=== PATIENT | male | born 1960 | race Caucasian/White ===

== ENCOUNTER → 2017-02-21 | Outpatient (CLI) | payer MEDICARE ==
[~2017-02-21] MED LIST: ALBUTEROL0.09 MG/A2 INH; AMBIEN5 MG PO; AMOXICILLIN500 MG PO; ASPIRIN ADULT L81 M1 PO; AUGMENTIN 875 M1 TAB PO; BACLOFEN20 M1 PO; CARDIZEM30 MG PO; CIPRODEX 0.3%-7.5 ML OT; CLARITIN10 MG PO; COUMADIN6 M1 PO; COUMADIN7.5 M1 PO; Coumadin5 MG PO; FEOSOL300 MG PO; FLONASE 0.05% 121 EA NAS; LASIX20 MG PO; LIPITOR40 MG PO; LOVENOX100 MG/1 M PO; MEDROL DOSEPAK4 MG PO; METOPROLOL SR50 MG PO; MICRO-K 1010 MEQ PO; NITRO-BID2% TP; PLAVIX75 MG PO; POTASSIUM20 MEQ PO; TESSALON PERLE200 MG PO; TORADOL10 MG PO; TYLENOL325 M2 PO; VISTARIL50 MG PO; XANAX0.25 MG PO; ZITHROMAX Z PA250 MG PO; ZITHROMAX250 MG PO
[2017-02-21 11:42] LABS: HEMATOCRIT 51.4 % (42.0-52.0); HEMOGLOBIN 16.2 g/dl (14.0-18.0); MEAN CELL VOLUME 84.3 fl (80.0-94.0); MEAN CORPUSCULAR HGB 26.6 pg (27.0-31.0); MEAN CORPUSCULAR HGB CONC 31.5 g/dl (33.0-37.0); MEAN PLATELET VOLUME 12.6 fl (9.6-12.3); RED BLOOD COUNT 6.1 10*6/uL (4.50-5.90); WHITE BLOOD COUNT 8.3 10*3/uL (4.8-10.8)
[2017-02-21 11:50] LABS: ALBUMIN 3.7 gm/dl (3.1-4.5); ALKALINE PHOSPHATASE 77 U/L (45-117); BILIRUBIN, TOTAL 0.4 mg/dl (0.2-1.0); BUN 8 mg/dl (7-24); CARBON DIOXIDE 25 mmol/L (21-32); CHLORIDE 105 mmol/L (98-107); CHOLESTEROL 108 mg/dL (<200); EST GLOM FILT AFRICAN AMERICAN > 60 ml/min; GLUCOSE 102 mg/dL (65-99); HDL CHOLESTEROL 45 mg/dl (40-60); LDL CHOLESTEROL 40 mg/dL (9-159); SGOT/AST 24 IU/L (3-35); SGPT/ALT 24 U/L (12-78); SODIUM 143 mmol/L (136-145); TOTAL PROTEIN 7.4 gm/dL (6.4-8.2); TRIGLYCERIDES 116 mg/dl (<150); VLDL CHOLESTEROL 23 mg/dL (6-40)
[2017-02-22 14:04] LABS: LYME AB/TOTAL IMMUNOGLOBULINS <0.91 ISR (0.00-0.90)
== END ==
LOC: PHLEB 02:15
PROVIDERS: Internal Medicine
DX: D45 Polycythemia vera (principal); R68.89 Other general symptoms and signs

== ENCOUNTER → 2017-03-01 | Outpatient (CLI) | payer MEDICARE ==
[2017-03-01 12:15] LABS: ALBUMIN 3.6 gm/dl (3.1-4.5); BILIRUBIN, DIRECT 0.1 mg/dL (0.0-0.2); BILIRUBIN, TOTAL 0.5 mg/dl (0.2-1.0); TOTAL PROTEIN 7.4 gm/dL (6.4-8.2)
== END | disposition home or self-care (01) ==
LOC: LAB 11:21
PROVIDERS: Internal Medicine
DX: E78.5 Hyperlipidemia, unspecified (principal); E55.9 Vitamin D deficiency, unspecified

== ENCOUNTER → 2017-04-04 | Outpatient (CLI) | payer MEDICARE | END | disposition home or self-care (01) | LOC: US 14:08 | DX: D45 Polycythemia vera (principal); M79.604 Pain in right leg; M79.605 Pain in left leg; I70.0 Atherosclerosis of aorta ==

== ENCOUNTER → 2017-05-22 | Outpatient (CLI) | payer MEDICARE ==
[~2017-05-22] MED LIST changes: +NEURONTIN100 MG PO; +REPATHA SY140 MG/1 M SQ
== END | disposition home or self-care (01) ==
LOC: US 13:21
DX: I65.23 Occlusion and stenosis of bilateral carotid arteries (principal); I65.9 Occlusion and stenosis of unspecified precerebral artery; I25.10 Atherosclerotic heart disease of native coronary artery without angina pectoris

== ENCOUNTER 2017-06-10 17:05 | Inpatient (IN) | payer MEDICARE ==
[~2017-06-10] VITALS: Ht 177.8 cm; Wt 86.3 kg
[2017-06-10 17:21] VITALS: BP 156/90
[2017-06-10 17:35] LABS: BASO % 0.4 % (0.0-1.0); EOS # 0.1 10*3/uL (0.0-0.4); EOS % 1.1 % (1.0-4.0); HEMATOCRIT 49.8 % (42.0-52.0); HEMOGLOBIN 16.5 g/dl (14.0-18.0); LYMPH # 1.6 10*3/uL (1.3-4.4); LYMPH % 18.3 % (27.0-41.0); MEAN CELL VOLUME 82.5 fl (80.0-94.0); MEAN CORPUSCULAR HGB 27.3 pg (27.0-31.0); MEAN CORPUSCULAR HGB CONC 33.1 g/dl (33.0-37.0); MEAN PLATELET VOLUME 12.1 fl (9.6-12.3); MONO # 0.9 10*3/uL (0.1-1.0); MONO % 9.8 % (3.0-9.0); NEUT # 6.2 10*3/uL (2.3-7.9); NEUT % 70.1 % (47.0-73.0); PLATELET COUNT AUTOMATED 129 10*3/uL (130-400); RED BLOOD COUNT 6.04 10*6/uL (4.50-5.90); RED CELL DISTRI WIDTH 19.8 % (0-14.5); WHITE BLOOD COUNT 8.9 10*3/uL (4.8-10.8)
[2017-06-10 17:48] LABS: ACT PARTIAL THROMBO TIME 27.2 SECONDS (20.8-31.5); INTERNATIONAL NORM RATIO 1.3 (2.0-3.5)
[2017-06-10 17:52] LABS: ALBUMIN 3.6 gm/dl (3.1-4.5); ALKALINE PHOSPHATASE 75 U/L (45-117); BUN 7 mg/dl (7-24); CHLORIDE 109 mmol/L (98-107); CREATININE 0.76 mg/dL (0.70-1.30); MAGNESIUM 2.2 mg/dL (1.5-2.1); SGOT/AST 27 IU/L (3-35); SGPT/ALT 21 U/L (12-78); SODIUM 140 mmol/L (136-145); TOTAL PROTEIN 7.1 gm/dL (6.4-8.2)
[2017-06-10 17:56] LABS: TROPONIN I 0.147 ng/ml (<0.045)
[2017-06-10 18:13] VITALS: BP 149/78
[2017-06-10 19:05] VITALS: BP 159/82
--- NOTE | 2017-06-10 19:12 | NUR ---
PT LYING IN BED, NO CHEST PAIN AT PRESENT
[2017-06-10 19:33] VITALS: BP 177/100
[2017-06-10 19:37] VITALS: BP 165/96
--- NOTE | 2017-06-10 20:26 | NUR ---
4TH FLOOR CALLED, SAID BED NOT CLEAN YET FOR THIS PATIENT WILL LET US KNOW WHEN CLEAN
[2017-06-10 20:57] VITALS: BP 159/82
[2017-06-10] MEDS ORDERED: XANAX0.25 MG PO (20:57)
--- NOTE | 2017-06-10 21:00 | NUR ---
A 57, admitted to 4E, under the services of CHRISTEN Chambers DO with a diagnosis of NSTEMI. Chief complaint is CHEST PAIN. Patient arrived via ambulatory from ER. Monitor applied. Initial assessment completed. Vital signs taken and recorded. CHRISTEN CHAMBERS DO notified of admission to the unit. Orders received. See assessment for past medical history, medications and allergies. Patient and/or family oriented to unit. [facility] visitation policy reviewed. Clothing/patient valuable form completed. THIERRY CANALES
--- NOTE | 2017-06-10 22:00 | NUR ---
PATIENT DENIES ANY CHEST PAIN AT THIS TIME. PATIENT STATED HE FEELS 100% BETTER. PATIENT MADE AWARE OF NPO STATUS FOR POSSIBLE STRESS TEST TOMORROW. DR. DWYER IN TO SEE PATIENT. PATIENT LEFT WITH CALL LIGHT IN REACH.
[2017-06-11] VITALS: BP 108/49
[2017-06-11 05:58] LABS: HEMATOCRIT 50.1 % (42.0-52.0); HEMOGLOBIN 16.1 g/dl (14.0-18.0); MEAN CELL VOLUME 85.5 fl (80.0-94.0); MEAN CORPUSCULAR HGB 27.5 pg (27.0-31.0); MEAN CORPUSCULAR HGB CONC 32.1 g/dl (33.0-37.0); PLATELET COUNT AUTOMATED 101 10*3/uL (130-400); RED BLOOD COUNT 5.86 10*6/uL (4.50-5.90); RED CELL DISTRI WIDTH 19.9 % (0-14.5); WHITE BLOOD COUNT 6.8 10*3/uL (4.8-10.8)
[2017-06-11 06:22] LABS: BUN 8 mg/dl (7-24); CHLORIDE 107 mmol/L (98-107); CHOLESTEROL 86 mg/dL (<200); CREATININE 0.84 mg/dL (0.70-1.30); POTASSIUM 3.9 mmol/L (3.5-5.1); SODIUM 143 mmol/L (136-145); TRIGLYCERIDES 132 mg/dl (<150); VLDL CHOLESTEROL 26 mg/dL (6-40)
[2017-06-11 06:26] LABS: ACT PARTIAL THROMBO TIME 29.8 SECONDS (20.8-31.5); INTERNATIONAL NORM RATIO 1.3 (2.0-3.5)
[2017-06-11 06:30] LABS: BASOPHILS 1 % (0-1); PLATELET SUFFICIENCY LOW (NORMAL); TOTAL CELLS COUNTED 100 #CELLS
[2017-06-11 06:31] LABS: HDL CHOLESTEROL 30 mg/dl (40-60); LDL CHOLESTEROL 30 mg/dL (9-159)
[2017-06-11 07:25] LABS: VITAMIN D, 25-HYDROXY 24.8 ng/mL (30-100)
[2017-06-11 08:00] VITALS: BP 140/68; BP 140/92
--- NOTE | 2017-06-11 08:30 | NUR ---
Internet Marketing Specialist in to talk to patient. Patient states lives at HOME with HIS . There are 2 steps in the home. Physician: DR MARTINES Pharmacy: [facility] Home health services: NONE Patient's level of ADLs: INDEPENDENT Patient has working utilities: YES DME: NONE Follow-up physician's appointment after d/c: WILL BE MADE PRIOR TO DC Does patient want to access PORTAL?: Discharge plan HOME. SAMUEL COWAN
--- NOTE | 2017-06-11 08:39 | NUR ---
PATIENT IS SITTING UP IN BED. PATIENT DENIES ANY CHEST PAIN THIS MORNING, BUT STATES "HAVE A SMALL HEADACHE BUT DONT NEED ANYTHING FOR IT". WILL CONTINUW TO MONITOR PATIENT. SEE SHIFT ASSESSMENT.
--- NOTE | 2017-06-11 09:11 | NUR ---
PATIENT HAD INCREASING HEADACHE PAIN THAT THEY RATED 5/10 THAT IS A SHARP STABBING PAIN IN THE FRONT OF THEIR HEAD. PATIENT WAS GIVEN TYLENOL. WILL CONTINUE TO MONITOR AD REASSESS.
--- NOTE | 2017-06-11 11:42 | NUR ---
CALLED DR. SQUIRES REGARDING DIET FOR TODAY HE WILL TAKE CARE OF IT.
[2017-06-11 12:00] VITALS: BP 128/71
--- NOTE | 2017-06-11 15:51 | NUR ---
PATIENT IS LAYING IN BED. FAMILY MEMBER IS AT THE PATIENTS BEDSIDE. PATIENT HAS NO COMPLAINTS OF PAIN OR DISCOMFORT AT THIS TIME. PATIENT HAD NO FURTHER REQUESTS AT THIS TIME, SEE SHIFT ASSESSMENT.
[2017-06-11 16:00] VITALS: BP 143/78
--- NOTE | 2017-06-11 18:47 | NUR ---
PATIENT IS SITTING UP IN BED. PATIENT HAS SEVERAL FAMILY MEMBERS AT THE BEDSIDE. PATIENT HAS NO COMPLAINTS OR REQUESTS AT THIS TIME. PATIENT DENIES ANY PAIN OR DISCOMFORT. SEE SHIFT ASSESSMENT, CALL LIGHT WITHIN REACH.
[2017-06-11 20:00] VITALS: BP 133/83
--- NOTE | 2017-06-11 20:00 | NUR ---
PATIENT SITTING UP IN BED, WITH FAMILY AT BEDSIDE. PATIENT AWARE OF NPO STATUS AT 0000. AND TRANSPORT TO [facility] FOR HEART CATH. PATIENT DENIES ANY CHEST PAIN AT THIS TIME. NO HEADACHE AT THIS TIME. PATIENT LEFT WITH CALL LIGHT IN REACH.
[2017-06-12] VITALS: BP 111/74
--- NOTE | 2017-06-12 01:48 | NUR ---
Resting quietly in bed. Resp easy and regular. Denies pain at this time. Will continue to monitor.
[2017-06-12 06:00] VITALS: BP 134/68
--- NOTE | 2017-06-12 08:15 | NUR ---
Discharge instructions reviewed with patient/family. Patient receptive and verbalizes understanding. PATIENT TRANSFERRED TO [facility]IA [facility]. Written instructions given TO PATIENT AND AMBULANCE. GAGE YOUNG
== END 2017-06-12 08:15 | disposition short-term general hospital (02) | DRG 281 ==
LOC: ED 17:05 → 4E 19:48 → EDHOLD 19:48 → 4E 20:15
PROVIDERS: Emergency Medicine; Internal Medicine; ADMIT Internal Medicine
DX: I21.4 Non-ST elevation (NSTEMI) myocardial infarction (principal); D68.59 Other primary thrombophilia; D69.6 Thrombocytopenia, unspecified; E55.9 Vitamin D deficiency, unspecified; I25.118 Atherosclerotic heart disease of native coronary artery with other forms of angina pectoris; I10 Essential (primary) hypertension; F41.9 Anxiety disorder, unspecified; I73.9 Peripheral vascular disease, unspecified; J40 Bronchitis, not specified as acute or chronic; Z95.0 Presence of cardiac pacemaker; Z95.2 Presence of prosthetic heart valve; Z79.01 Long term (current) use of anticoagulants; Z83.3 Family history of diabetes mellitus; Z82.49 Family history of ischemic heart disease and other diseases of the circulatory system; Z82.5 Family history of asthma and other chronic lower respiratory diseases; I25.2 Old myocardial infarction; Z95.5 Presence of coronary angioplasty implant and graft; Z86.73 Personal history of transient ischemic attack (TIA), and cerebral infarction without residual deficits; Z87.891 Personal history of nicotine dependence; Z79.899 Other long term (current) drug therapy; Z79.82 Long term (current) use of aspirin

== ENCOUNTER 2017-08-27 07:41 | Emergency (ER) | payer MEDICARE ==
[~2017-08-27] VITALS: Ht 180.3 cm; Wt 90.7 kg
[2017-08-27] MEDS ORDERED: RANEXA500 M1 PO (07:50)
[2017-08-27] MEDS ORDERED: PLAVIX75 M1 PO (07:50)
[2017-08-27 08:10] LABS: BASO % 0.6 % (0.0-1.0); EOS # 0.1 10*3/uL (0.0-0.4); EOS % 1.4 % (1.0-4.0); HEMATOCRIT 50.9 % (42.0-52.0); LYMPH # 1.3 10*3/uL (1.3-4.4); LYMPH % 17.7 % (27.0-41.0); MEAN CELL VOLUME 88.8 fl (80.0-94.0); MEAN CORPUSCULAR HGB 29.7 pg (27.0-31.0); MEAN CORPUSCULAR HGB CONC 33.4 g/dl (33.0-37.0); MEAN PLATELET VOLUME 11.2 fl (9.6-12.3); MONO # 0.8 10*3/uL (0.1-1.0); MONO % 10.8 % (3.0-9.0); NEUT % 68.8 % (47.0-73.0); PLATELET COUNT AUTOMATED 142 10*3/uL (130-400); RED BLOOD COUNT 5.73 10*6/uL (4.50-5.90); RED CELL DISTRI WIDTH 15.5 % (0-14.5); WHITE BLOOD COUNT 7.2 10*3/uL (4.8-10.8)
[2017-08-27 08:17] LABS: INTERNATIONAL NORM RATIO 2.4 (2.0-3.5)
[2017-08-27 08:21] LABS: BUN 9 mg/dl (7-24); CHLORIDE 107 mmol/L (98-107); CREATININE 0.84 mg/dL (0.70-1.30); POTASSIUM 3.9 mmol/L (3.5-5.1); SODIUM 139 mmol/L (136-145)
[2017-08-27 13:25] VITALS: BP 144/78
== END 2017-08-27 13:26 | disposition home or self-care (01) ==
LOC: ED 07:41
PROVIDERS: Emergency Medicine
DX: R04.0 Epistaxis (principal); I10 Essential (primary) hypertension; F41.9 Anxiety disorder, unspecified; E83.41 Hypermagnesemia; Z79.899 Other long term (current) drug therapy; Z79.82 Long term (current) use of aspirin; Z86.73 Personal history of transient ischemic attack (TIA), and cerebral infarction without residual deficits; Z95.1 Presence of aortocoronary bypass graft; Z87.891 Personal history of nicotine dependence

== ENCOUNTER → 2017-09-13 | Outpatient (CLI) | payer MEDICARE ==
[~2017-09-13] MED LIST changes: +PLAVIX75 M1 PO; +RANEXA500 M1 PO
[2017-09-13 16:03] LABS: BUN 13 mg/dl (7-24); CHLORIDE 105 mmol/L (98-107); CREATININE 1.03 mg/dL (0.70-1.30); POTASSIUM 3.9 mmol/L (3.5-5.1); SODIUM 139 mmol/L (136-145)
== END | disposition home or self-care (01) ==
LOC: LAB 15:28
PROVIDERS: Surgery
DX: I65.22 Occlusion and stenosis of left carotid artery (principal)

== ENCOUNTER → 2018-01-06 | Outpatient (CLI) | payer MEDICARE | END | disposition home or self-care (01) | LOC: RAD 10:45 | DX: I48.91 Unspecified atrial fibrillation (principal); R20.0 Anesthesia of skin ==

== ENCOUNTER → 2018-02-05 | Outpatient (CLI) | payer MEDICARE | END | disposition home or self-care (01) | LOC: US 10:26 | DX: I70.8 Atherosclerosis of other arteries (principal); I73.9 Peripheral vascular disease, unspecified ==

== ENCOUNTER 2018-05-11 17:23 | Emergency (ER) | payer MEDICARE ==
[~2018-05-11] VITALS: Ht 180.3 cm; Wt 88.5 kg
[2018-05-11 18:23] LABS: BASO % 0.5 % (0.0-1.0); EOS # 0.1 10*3/uL (0.0-0.4); EOS % 2.1 % (1.0-4.0); HEMATOCRIT 49.9 % (42.0-52.0); LYMPH # 1.6 10*3/uL (1.3-4.4); LYMPH % 23.6 % (27.0-41.0); MEAN CELL VOLUME 85.3 fl (80.0-94.0); MEAN CORPUSCULAR HGB 27.4 pg (27.0-31.0); MEAN CORPUSCULAR HGB CONC 32.1 g/dl (33.0-37.0); MONO # 0.8 10*3/uL (0.1-1.0); MONO % 11.4 % (3.0-9.0); NEUT # 4.1 10*3/uL (2.3-7.9); NEUT % 61.8 % (47.0-73.0); PLATELET COUNT AUTOMATED 137 10*3/uL (130-400); RED BLOOD COUNT 5.85 10*6/uL (4.50-5.90); RED CELL DISTRI WIDTH 15.9 % (0-14.5); WHITE BLOOD COUNT 6.6 10*3/uL (4.8-10.8)
[2018-05-11 18:33] LABS: ACT PARTIAL THROMBO TIME 36.4 SECONDS (20.8-31.5); INTERNATIONAL NORM RATIO 3.6 (2.0-3.5)
[2018-05-11 18:41] LABS: BUN 11 mg/dl (7-24); CHLORIDE 109 mmol/L (98-107); CREATININE 0.86 mg/dL (0.70-1.30); POTASSIUM 3.9 mmol/L (3.5-5.1); SODIUM 141 mmol/L (136-145)
[2018-05-11 19:37] VITALS: BP 170/80
== END 2018-05-11 19:52 | disposition home or self-care (01) ==
LOC: ED 17:23
PROVIDERS: Emergency Medicine
DX: S20.212A Contusion of left front wall of thorax, initial encounter (principal); S50.312A Abrasion of left elbow, initial encounter; S80.212A Abrasion, left knee, initial encounter; S80.211A Abrasion, right knee, initial encounter; I25.10 Atherosclerotic heart disease of native coronary artery without angina pectoris; I10 Essential (primary) hypertension; Z79.899 Other long term (current) drug therapy; Z79.82 Long term (current) use of aspirin; Z86.73 Personal history of transient ischemic attack (TIA), and cerebral infarction without residual deficits; Z87.891 Personal history of nicotine dependence; Z95.1 Presence of aortocoronary bypass graft; Z95.0 Presence of cardiac pacemaker; W10.9XXA Fall (on) (from) unspecified stairs and steps, initial encounter; Y93.89 Activity, other specified; Y92.89 Other specified places as the place of occurrence of the external cause; Y99.8 Other external cause status

== ENCOUNTER → 2018-05-12 | Outpatient (CLI) | payer MEDICARE | END | disposition home or self-care (01) | LOC: RAD 14:07 | DX: S51.011A Laceration without foreign body of right elbow, initial encounter (principal); M19.021 Primary osteoarthritis, right elbow; M25.421 Effusion, right elbow; X58.XXXA Exposure to other specified factors, initial encounter; Y93.89 Activity, other specified; Y92.89 Other specified places as the place of occurrence of the external cause; Y99.8 Other external cause status ==

== ENCOUNTER → 2018-05-29 | Outpatient (CLI) | payer MEDICARE ==
[2018-05-29 11:43] LABS: ALBUMIN 3.5 gm/dl (3.1-4.5); BILIRUBIN, DIRECT 0.1 mg/dL (0.0-0.2); FREE T4 0.98 ng/dl (0.76-1.46); TOTAL PROTEIN 7.2 gm/dL (6.4-8.2)
[2018-05-29 11:49] LABS: THYROID STIM HORMONE (HS) 1.79 uIU/ml (0.358-4.75)
== END | disposition home or self-care (01) ==
LOC: LAB 10:12
PROVIDERS: Internal Medicine
DX: E78.5 Hyperlipidemia, unspecified (principal); E55.9 Vitamin D deficiency, unspecified

== ENCOUNTER → 2018-08-01 | Outpatient (CLI) | payer MEDICARE ==
[2018-08-01 09:10] VITALS: BP 131/67
[2018-08-01 09:35] VITALS: BP 96/54
[2018-08-01 09:53] VITALS: BP 116/68
== END | disposition home or self-care (01) ==
LOC: PHLEB 00:43
DX: D45 Polycythemia vera (principal)

== ENCOUNTER → 2018-09-22 | Outpatient (CLI) | payer MEDICARE | END | disposition home or self-care (01) | LOC: CT 09-16 09:00 → LAB 10:26 → CT 11:00 | PROVIDERS: Physician Assistant | DX: M51.27 Other intervertebral disc displacement, lumbosacral region (principal); G62.9 Polyneuropathy, unspecified ==

== ENCOUNTER → 2018-11-19 | Outpatient (CLI) | payer OTHER ==
[~2018-11-19] MED LIST changes: +FEOSOL325 MG PO; +LYRICA25 M1 PO; +METOPROLOL SUCC25 M2 PO
== END | disposition home or self-care (01) ==
LOC: CT 08:28
DX: I63.9 Cerebral infarction, unspecified (principal); I48.91 Unspecified atrial fibrillation

== ENCOUNTER → 2019-02-19 | Outpatient (CLI) | payer OTHER ==
[2019-02-19 11:24] LABS: THYROID STIM HORMONE (HS) 1.64 uIU/ml (0.358-4.75)
[2019-02-20 07:04] LABS: CREATINE KINASE, TOTAL, SERUM 182 U/L (24-204)
[2019-02-20 14:09] LABS: CK-BB 0 % (0); CK-MB 0 % (0-3); CK-MM 100 % (97-100); MACRO TYPE 1 0 % (Not Observed); MACRO TYPE 2 0 % (Not Observed)
[2019-02-20 16:06] LABS: ALDOLASE 002030 6.8 U/L (3.3-10.3)
== END | disposition home or self-care (01) ==
LOC: LAB 10:07
PROVIDERS: Psychiatry & Neurology Neurology
DX: Z79.899 Other long term (current) drug therapy (principal)

== ENCOUNTER → 2019-04-25 | Outpatient (CLI) | payer OTHER ==
[2019-04-25 11:13] LABS: ALBUMIN 3.7 gm/dl (3.1-4.5); BILIRUBIN, DIRECT 0.1 mg/dL (0.0-0.2); TOTAL PROTEIN 7.3 gm/dL (6.4-8.2)
== END | disposition home or self-care (01) ==
LOC: LAB 10:01
PROVIDERS: Internal Medicine
DX: E55.9 Vitamin D deficiency, unspecified (principal); E78.5 Hyperlipidemia, unspecified

== ENCOUNTER → 2019-06-15 | Outpatient (CLI) | payer OTHER ==
[2019-06-15 09:14] LABS: INTERNATIONAL NORM RATIO 2.9 (2.0-3.5)
== END | disposition home or self-care (01) ==
LOC: LAB 08:44
PROVIDERS: Internal Medicine
DX: I48.91 Unspecified atrial fibrillation (principal)

== ENCOUNTER → 2019-09-11 | Outpatient (CLI) | payer OTHER ==
[2019-09-11 12:42] LABS: HEMATOCRIT 52.5 % (42.0-52.0); HEMOGLOBIN 17.4 g/dl (14.0-18.0); MEAN CELL VOLUME 93.1 fl (80.0-94.0); MEAN CORPUSCULAR HGB 30.9 pg (27.0-31.0); MEAN CORPUSCULAR HGB CONC 33.1 g/dl (33.0-37.0); MEAN PLATELET VOLUME 11.2 fl (9.6-12.3); RED BLOOD COUNT 5.64 10*6/uL (4.50-5.90); RED CELL DISTRI WIDTH 14.7 % (0-14.5); WHITE BLOOD COUNT 7.1 10*3/uL (4.8-10.8)
== END | disposition home or self-care (01) ==
LOC: LAB 12:23
PROVIDERS: Physician Assistant
DX: E78.00 Pure hypercholesterolemia, unspecified (principal); Z95.2 Presence of prosthetic heart valve; Z79.899 Other long term (current) drug therapy

== ENCOUNTER 2019-11-09 21:29 | Emergency (ER) | payer MEDICARE ==
[~2019-11-09] VITALS: Ht 177.8 cm; Wt 102.1 kg
[2019-11-09 22:11] LABS: BASO % 0.5 % (0.0-1.0); EOS # 0.1 10*3/uL (0.0-0.4); EOS % 1.6 % (1.0-4.0); HEMATOCRIT 52.2 % (42.0-52.0); HEMOGLOBIN 17.1 g/dl (14.0-18.0); LYMPH # 1.5 10*3/uL (1.3-4.4); LYMPH % 20.4 % (27.0-41.0); MEAN CELL VOLUME 90.8 fl (80.0-94.0); MEAN CORPUSCULAR HGB 29.7 pg (27.0-31.0); MEAN CORPUSCULAR HGB CONC 32.8 g/dl (33.0-37.0); MEAN PLATELET VOLUME 12.3 fl (9.6-12.3); MONO # 0.9 10*3/uL (0.1-1.0); MONO % 11.7 % (3.0-9.0); NEUT # 4.8 10*3/uL (2.3-7.9); NEUT % 65.4 % (47.0-73.0); PLATELET COUNT AUTOMATED 124 10*3/uL (130-400); RED BLOOD COUNT 5.75 10*6/uL (4.50-5.90); RED CELL DISTRI WIDTH 15.1 % (0-14.5); WHITE BLOOD COUNT 7.3 10*3/uL (4.8-10.8)
[2019-11-09 22:29] LABS: BACTERIA TRACE; BILIRUBIN NEGATIVE (NEGATIVE); BLOOD TRACE-INTACT (NEGATIVE); CLARITY CLEAR (CLEAR); COLOR YELLOW (YELLOW); EPITHELIAL CELLS 0-2; GLUCOSE NEGATIVE (NEGATIVE); HYALINE CAST 0-2; KETONE NEGATIVE (NEGATIVE); LEUKO ESTERASE NEGATIVE (NEGATIVE); MUCOUS 1+; NITRITE NEGATIVE (NEGATIVE); UROBILINOGEN 0.2 E.U./dl (0.2-1.0); WBC 0-2 wbc/hpf (0-5)
[2019-11-09 22:32] LABS: ALBUMIN 3.6 gm/dl (3.1-4.5); ALKALINE PHOSPHATASE 63 U/L (45-117); BUN 14 mg/dl (7-24); CHLORIDE 107 mmol/L (98-107); POTASSIUM 3.8 mmol/L (3.5-5.1); SGOT/AST 24 IU/L (3-35); SGPT/ALT 26 U/L (12-78); SODIUM 138 mmol/L (136-145); TOTAL PROTEIN 7.3 gm/dL (6.4-8.2)
[2019-11-09 23:45] VITALS: BP 122/74
[2019-11-09] MEDS ORDERED: FLOMAX0.4 MG PO (23:58)
== END 2019-11-10 00:10 | disposition home or self-care (01) ==
LOC: ED 21:29
PROVIDERS: Physician Assistant
DX: N23 Unspecified renal colic (principal); I11.0 Hypertensive heart disease with heart failure; I50.9 Heart failure, unspecified; E78.00 Pure hypercholesterolemia, unspecified; I25.2 Old myocardial infarction; Z79.01 Long term (current) use of anticoagulants; Z79.82 Long term (current) use of aspirin; Z79.899 Other long term (current) drug therapy; Z95.0 Presence of cardiac pacemaker; Z95.1 Presence of aortocoronary bypass graft; Z86.73 Personal history of transient ischemic attack (TIA), and cerebral infarction without residual deficits

== ENCOUNTER → 2020-05-01 | Outpatient (CLI) | payer MEDICARE ==
[~2020-05-01] MED LIST changes: +FLOMAX0.4 MG PO
[2020-05-01 14:20] LABS: INTERNATIONAL NORM RATIO 1.5 (2.0-3.5)
== END | disposition home or self-care (01) ==
LOC: LAB 13:18
PROVIDERS: ATTEND Physician Assistant
DX: I48.91 Unspecified atrial fibrillation (principal)

== ENCOUNTER 2020-09-11 11:53 | Inpatient (IN) | payer MEDICARE ==
[~2020-09-11] VITALS: Ht 177.8 cm; Wt 99.8 kg
[2020-09-11 12:00] VITALS: BP 182/92
[2020-09-11 12:27] LABS: BASO % 0.7 % (0.0-1.0); EOS # 0.1 10*3/uL (0.0-0.4); EOS % 1.8 % (1.0-4.0); HEMATOCRIT 50.4 % (42.0-52.0); LYMPH # 1.4 10*3/uL (1.3-4.4); MEAN CELL VOLUME 83.3 fl (80.0-94.0); MEAN CORPUSCULAR HGB 25.8 pg (27.0-31.0); MEAN PLATELET VOLUME 10.5 fl (9.6-12.3); MONO # 0.6 10*3/uL (0.1-1.0); MONO % 10.5 % (3.0-9.0); NEUT # 3.6 10*3/uL (2.3-7.9); NEUT % 62.5 % (47.0-73.0); PLATELET COUNT AUTOMATED 160 10*3/uL (130-400); RED BLOOD COUNT 6.05 10*6/uL (4.50-5.90); RED CELL DISTRI WIDTH 15.5 % (0-14.5); WHITE BLOOD COUNT 5.7 10*3/uL (4.8-10.8)
[2020-09-11 12:32] LABS: ACT PARTIAL THROMBO TIME 45.1 SECONDS (20.0-32.1)
[2020-09-11 12:33] LABS: ALKALINE PHOSPHATASE 66 U/L (45-117); BUN 11 mg/dl (7-24); CHLORIDE 108 mmol/L (98-107); CREATININE 1.02 mg/dL (0.70-1.30); POTASSIUM 4.4 mmol/L (3.5-5.1); SGOT/AST 21 IU/L (3-35); SGPT/ALT 24 U/L (12-78); SODIUM 138 mmol/L (136-145); TOTAL PROTEIN 7.8 gm/dL (6.4-8.2)
[2020-09-11 12:42] LABS: TROPONIN I 0.206 ng/ml (<0.045)
[2020-09-11] MEDS ORDERED: REPATHA SU140 MG/1 M SQ (13:05)
[2020-09-11 13:10] VITALS: BP 147/73
[2020-09-11 14:20] VITALS: BP 134/68
[2020-09-11 20:04] VITALS: BP 115/69
[2020-09-12 02:40] VITALS: BP 129/75
[2020-09-12 05:55] LABS: ALBUMIN 3.4 gm/dl (3.1-4.5); ALKALINE PHOSPHATASE 60 U/L (45-117); BUN 13 mg/dl (7-24); CHLORIDE 107 mmol/L (98-107); CHOLESTEROL 104 mg/dL (<200); CREATININE 0.96 mg/dL (0.70-1.30); HDL CHOLESTEROL 41 mg/dl (40-60); LDL CHOLESTEROL 37 mg/dL (9-159); POTASSIUM 3.9 mmol/L (3.5-5.1); SGOT/AST 17 IU/L (3-35); SGPT/ALT 21 U/L (12-78); SODIUM 137 mmol/L (136-145); TOTAL PROTEIN 6.6 gm/dL (6.4-8.2); TRIGLYCERIDES 131 mg/dl (<150); VLDL CHOLESTEROL 26 mg/dL (6-40)
[2020-09-12 06:08] LABS: TROPONIN I 0.317 ng/ml (<0.045)
[2020-09-12 06:28] LABS: ACT PARTIAL THROMBO TIME 56.1 SECONDS (20.0-32.1)
[2020-09-12 06:51] VITALS: BP 136/65
[2020-09-12 07:17] LABS: BASO % 0.5 % (0.0-1.0); EOS # 0.1 10*3/uL (0.0-0.4); EOS % 1.7 % (1.0-4.0); HEMATOCRIT 45.8 % (42.0-52.0); LYMPH # 1.2 10*3/uL (1.3-4.4); LYMPH % 20.2 % (27.0-41.0); MEAN CELL VOLUME 82.8 fl (80.0-94.0); MEAN CORPUSCULAR HGB 25.9 pg (27.0-31.0); MEAN CORPUSCULAR HGB CONC 31.2 g/dl (33.0-37.0); MEAN PLATELET VOLUME 12.6 fl (9.6-12.3); MONO # 0.7 10*3/uL (0.1-1.0); MONO % 11.1 % (3.0-9.0); NEUT # 3.9 10*3/uL (2.3-7.9); PLATELET COUNT AUTOMATED 130 10*3/uL (130-400); RED BLOOD COUNT 5.53 10*6/uL (4.50-5.90); RED CELL DISTRI WIDTH 15.1 % (0-14.5)
[2020-09-12 12:45] VITALS: BP 135/63
[2020-09-12 16:00] VITALS: BP 148/79
== END 2020-09-13 02:36 | disposition short-term general hospital (02) | DRG 281 ==
LOC: ED 11:53 → EDHOLD 13:00
PROVIDERS: Emergency Medicine; Internal Medicine; ADMIT Internal Medicine; ATTEND Internal Medicine
PROC: 4A02XM4 Measurement of Cardiac Total Activity, External Approach (ICD-10-PCS; principal; 2020-09-12)
PROC: 3E073KZ Introduction of Other Diagnostic Substance into Coronary Artery, Percutaneous Approach (ICD-10-PCS; 2020-09-12)
DX: I21.4 Non-ST elevation (NSTEMI) myocardial infarction (principal); I16.1 Hypertensive emergency; D75.1 Secondary polycythemia; I25.10 Atherosclerotic heart disease of native coronary artery without angina pectoris; I10 Essential (primary) hypertension; I48.0 Paroxysmal atrial fibrillation; F41.9 Anxiety disorder, unspecified; E66.9 Obesity, unspecified; E78.2 Mixed hyperlipidemia; E87.8 Other disorders of electrolyte and fluid balance, not elsewhere classified; D50.9 Iron deficiency anemia, unspecified; R73.9 Hyperglycemia, unspecified; Z79.01 Long term (current) use of anticoagulants; Z82.49 Family history of ischemic heart disease and other diseases of the circulatory system; Z87.891 Personal history of nicotine dependence; Z95.0 Presence of cardiac pacemaker; Z86.73 Personal history of transient ischemic attack (TIA), and cerebral infarction without residual deficits; Z79.82 Long term (current) use of aspirin; Z79.899 Other long term (current) drug therapy; Z95.1 Presence of aortocoronary bypass graft; Z95.2 Presence of prosthetic heart valve; Z68.31 Body mass index [BMI] 31.0-31.9, adult

== ENCOUNTER → 2020-09-30 | Outpatient (CLI) | payer MEDICARE ==
[~2020-09-30] MED LIST changes: +REPATHA SU140 MG/1 M SQ
== END | disposition home or self-care (01) ==
LOC: COVID19 15:45
PROVIDERS: ATTEND Physician Assistant
DX: Z01.812 Encounter for preprocedural laboratory examination (principal); Z20.822 Contact with and (suspected) exposure to COVID-19

== ENCOUNTER → 2021-01-24 | Outpatient (CLI) | payer MEDICARE ==
[2021-01-24 10:11] LABS: HEMATOCRIT 47.7 % (42.0-52.0); MEAN CORPUSCULAR HGB 25.3 pg (27.0-31.0); MEAN CORPUSCULAR HGB CONC 30.8 g/dl (33.0-37.0); MEAN PLATELET VOLUME 10.9 fl (9.6-12.3); RED BLOOD COUNT 5.82 10*6/uL (4.50-5.90); RED CELL DISTRI WIDTH 19.6 % (0-14.5); WHITE BLOOD COUNT 6.7 10*3/uL (4.8-10.8)
== END | disposition home or self-care (01) ==
LOC: LAB 09:55
PROVIDERS: ATTEND Physician Assistant
DX: I10 Essential (primary) hypertension (principal); I35.9 Nonrheumatic aortic valve disorder, unspecified; I48.91 Unspecified atrial fibrillation; Z79.899 Other long term (current) drug therapy

== ENCOUNTER → 2021-08-04 | Outpatient (CLI) | payer MEDICARE ==
[2021-08-04 09:36] LABS: INTERNATIONAL NORM RATIO 1.1 (2.0-3.5)
== END | disposition home or self-care (01) ==
LOC: LAB 09:04
PROVIDERS: ATTEND Physician Assistant
DX: I35.9 Nonrheumatic aortic valve disorder, unspecified (principal); Z79.899 Other long term (current) drug therapy

== ENCOUNTER → 2021-08-06 | Outpatient (CLI) | payer MEDICARE ==
[2021-08-06 07:25] LABS: INTERNATIONAL NORM RATIO 1.5 (2.0-3.5)
== END | disposition home or self-care (01) ==
LOC: LAB 06:49
PROVIDERS: ATTEND Physician Assistant
DX: I35.9 Nonrheumatic aortic valve disorder, unspecified (principal); Z79.899 Other long term (current) drug therapy

== ENCOUNTER 2022-01-15 15:10 | Observation (INO) | payer MEDICARE ==
[~2022-01-15] VITALS: Ht 177.8 cm; Wt 98.2 kg
[2022-01-15 15:17] VITALS: BP 131/69
[2022-01-15] MEDS ORDERED: MAGNESIUM OXID400 MG PO (15:28)
[2022-01-15] MEDS ORDERED: B12 ACTIVE1000 MCG PO (15:29)
[2022-01-15] MEDS ORDERED: HYDROCODONE-AC1 EAC1 PO (15:30)
[2022-01-15] MEDS ORDERED: SILDENAFIL CIT100 MG PO (15:33)
[2022-01-15 16:04] LABS: HEMATOCRIT 44.4 % (42.0-52.0); MEAN CORPUSCULAR HGB 22.2 pg (27.0-31.0); MEAN CORPUSCULAR HGB CONC 30.4 g/dl (33.0-37.0); PLATELET COUNT AUTOMATED 167 10*3/uL (130-400); RED BLOOD COUNT 6.08 10*6/uL (4.50-5.90); RED CELL DISTRI WIDTH 17.5 % (0-14.5); WHITE BLOOD COUNT 4.8 10*3/uL (4.8-10.8)
[2022-01-15 16:07] LABS: MANUAL DIFF REFLEX YES
[2022-01-15 16:11] LABS: ACT PARTIAL THROMBO TIME 41.1 SECONDS (20.0-32.1); INTERNATIONAL NORM RATIO 2.9 (2.0-3.5)
[2022-01-15 16:15] LABS: BUN 14 mg/dl (7-24); CHLORIDE 109 mmol/L (98-107); CREATININE 1.05 mg/dL (0.70-1.30); LIPASE 92 U/L (73-393); POTASSIUM 4.1 mmol/L (3.5-5.1); SGOT/AST 17 IU/L (3-35); SGPT/ALT 19 U/L (12-78); SODIUM 139 mmol/L (136-145); TOTAL PROTEIN 6.9 gm/dL (6.4-8.2)
[2022-01-15 16:16] LABS: ALKALINE PHOSPHATASE 50 U/L (45-117)
[2022-01-15 16:25] LABS: BASOPHILS 1 % (0-1); MICROCYTOSIS SLIGHT; PLATELET SUFFICIENCY NORMAL (NORMAL); TOTAL CELLS COUNTED 100 #CELLS
[2022-01-15 17:05] VITALS: BP 136/58
[2022-01-15 18:28] VITALS: BP 134/68
[2022-01-15 20:30] VITALS: BP 132/72
[2022-01-16] VITALS: BP 128/64
[2022-01-16 06:17] LABS: ALKALINE PHOSPHATASE 45 U/L (45-117); BUN 15 mg/dl (7-24); CHLORIDE 113 mmol/L (98-107); CREATININE 1.27 mg/dL (0.70-1.30); POTASSIUM 4.2 mmol/L (3.5-5.1); SGOT/AST 15 IU/L (3-35); SGPT/ALT 19 U/L (12-78); SODIUM 144 mmol/L (136-145); TOTAL PROTEIN 6.3 gm/dL (6.4-8.2)
[2022-01-16 06:22] LABS: INTERNATIONAL NORM RATIO 2.4 (2.0-3.5)
[2022-01-16 07:43] LABS: HEMATOCRIT 42.5 % (42.0-52.0); MEAN CELL VOLUME 73.4 fl (80.0-94.0); MEAN CORPUSCULAR HGB 22.5 pg (27.0-31.0); MEAN CORPUSCULAR HGB CONC 30.6 g/dl (33.0-37.0); MEAN PLATELET VOLUME 10.6 fl (9.6-12.3); PLATELET COUNT AUTOMATED 176 10*3/uL (130-400); RED BLOOD COUNT 5.79 10*6/uL (4.50-5.90); RED CELL DISTRI WIDTH 17.7 % (0-14.5); WHITE BLOOD COUNT 4.7 10*3/uL (4.8-10.8)
[2022-01-16 08:00] VITALS: BP 122/65
[2022-01-16 08:35] LABS: MANUAL DIFF REFLEX YES
[2022-01-16 08:40] LABS: OVALOCYTES FEW; POLYCHROMASIA SLIGHT; TOTAL CELLS COUNTED 100 #CELLS
[2022-01-16 08:41] LABS: MICROCYTOSIS SLIGHT; PLATELET SUFFICIENCY NORMAL (NORMAL)
[2022-01-16 12:00] VITALS: BP 153/66
[2022-01-16 16:00] VITALS: BP 145/59
[2022-01-16 20:00] VITALS: BP 148/66
[2022-01-17] VITALS: BP 117/60
[2022-01-17 05:34] LABS: INTERNATIONAL NORM RATIO 2.4 (2.0-3.5)
[2022-01-17 05:41] LABS: BUN 11 mg/dl (7-24); CHLORIDE 113 mmol/L (98-107); CREATININE 1.01 mg/dL (0.70-1.30); SODIUM 142 mmol/L (136-145)
[2022-01-17 08:00] VITALS: BP 114/87
[2022-01-17 12:00] VITALS: BP 141/82
[2022-01-17] MEDS ORDERED: CLOPIDOGREL75 MG PO (12:17)
[2022-01-17] MEDS ORDERED: XANAX0.5 MG PO (12:17)
[2022-01-17] MEDS ORDERED: ASPIRIN ADULT L81 M2 PO (12:17)
[2022-01-17 12:31] LABS: ACT PARTIAL THROMBO TIME 38.5 SECONDS (20.0-32.1); INTERNATIONAL NORM RATIO 2.1 (2.0-3.5)
== END 2022-01-17 13:06 | disposition short-term general hospital (02) ==
LOC: ED 15:10 → EDHOLD 17:06 → 5E 17:06 → EDHOLD 17:13 → 5E 20:31
PROVIDERS: Emergency Medicine; Hospitalist; Internal Medicine; ADMIT Internal Medicine; ATTEND Internal Medicine
DX: R07.89 Other chest pain (principal); I48.21 Permanent atrial fibrillation; R06.00 Dyspnea, unspecified; E87.8 Other disorders of electrolyte and fluid balance, not elsewhere classified; F41.9 Anxiety disorder, unspecified; I67.9 Cerebrovascular disease, unspecified; I70.213 Atherosclerosis of native arteries of extremities with intermittent claudication, bilateral legs; R79.89 Other specified abnormal findings of blood chemistry; R77.8 Other specified abnormalities of plasma proteins; E83.41 Hypermagnesemia; D50.9 Iron deficiency anemia, unspecified; E66.9 Obesity, unspecified; E78.5 Hyperlipidemia, unspecified; G72.0 Drug-induced myopathy; Z79.01 Long term (current) use of anticoagulants; Z79.899 Other long term (current) drug therapy

== ENCOUNTER 2022-03-14 14:38 | Emergency (ER) | payer MEDICARE ==
[~2022-03-14] VITALS: Wt 93.9 kg
[~2022-03-14 14:38] MED LIST changes: +ASPIRIN ADULT L81 M2 PO; +B12 ACTIVE1000 MCG PO; +CLOPIDOGREL75 MG PO; +HYDROCODONE-AC1 EAC1 PO; +MAGNESIUM OXID400 MG PO; +SILDENAFIL CIT100 MG PO; +XANAX0.5 MG PO
[2022-03-14 16:17] LABS: HEMATOCRIT 47.9 % (42.0-52.0); MEAN CELL VOLUME 72.1 fl (80.0-94.0); MEAN CORPUSCULAR HGB 21.8 pg (27.0-31.0); MEAN CORPUSCULAR HGB CONC 30.3 g/dl (33.0-37.0); PLATELET COUNT AUTOMATED 204 10*3/uL (130-400); RED BLOOD COUNT 6.64 10*6/uL (4.50-5.90); RED CELL DISTRI WIDTH 18.8 % (0-14.5); WHITE BLOOD COUNT 6.7 10*3/uL (4.8-10.8)
[2022-03-14] MEDS ORDERED: WARFARIN SODIUM1 MG PO (16:17)
[2022-03-14] MEDS ORDERED: REPATHA SU140 MG/1 M SQ (16:20)
[2022-03-14 16:25] VITALS: BP 152/76
[2022-03-14 16:31] LABS: ACT PARTIAL THROMBO TIME 39.8 SECONDS (20.0-32.1); INTERNATIONAL NORM RATIO 2.6 (2.0-3.5)
[2022-03-14 16:36] LABS: ALKALINE PHOSPHATASE 55 U/L (45-117); BUN 17 mg/dl (7-24); CHLORIDE 108 mmol/L (98-107); CREATININE 0.94 mg/dL (0.70-1.30); SGOT/AST 18 IU/L (3-35); SGPT/ALT 19 U/L (12-78); SODIUM 140 mmol/L (136-145); TOTAL PROTEIN 7.3 gm/dL (6.4-8.2)
[2022-03-14 16:41] LABS: MANUAL DIFF REFLEX YES
[2022-03-14 16:53] LABS: TOTAL CELLS COUNTED 100 #CELLS
[2022-03-14 16:54] LABS: MICROCYTOSIS SLIGHT; PLATELET SUFFICIENCY NORMAL (NORMAL)
[2022-03-14] MEDS ORDERED: PREDNISONE50 MG PO (18:09)
== END 2022-03-14 18:27 | disposition home or self-care (01) ==
LOC: ED 14:38
PROVIDERS: Emergency Medicine
DX: S76.011A Strain of muscle, fascia and tendon of right hip, initial encounter (principal); M79.651 Pain in right thigh; Z79.899 Other long term (current) drug therapy; Z79.01 Long term (current) use of anticoagulants; Z95.0 Presence of cardiac pacemaker; Z90.89 Acquired absence of other organs; Z87.891 Personal history of nicotine dependence; X58.XXXA Exposure to other specified factors, initial encounter; Y93.89 Activity, other specified; Y92.89 Other specified places as the place of occurrence of the external cause; Y99.8 Other external cause status

== ENCOUNTER 2022-05-22 14:57 | Emergency (ER) | payer MEDICARE ==
[~2022-05-22] VITALS: Wt 95.3 kg
[~2022-05-22 14:57] MED LIST changes: +PREDNISONE50 MG PO; +WARFARIN SODIUM1 MG PO
[2022-05-22 15:09] VITALS: BP 172/83
[2022-05-22 15:44] LABS: HEMATOCRIT 49.6 % (42.0-52.0); MEAN CORPUSCULAR HGB 23.3 pg (27.0-31.0); MEAN CORPUSCULAR HGB CONC 30.6 g/dl (33.0-37.0); MEAN PLATELET VOLUME 9.8 fl (9.6-12.3); PLATELET COUNT AUTOMATED 216 10*3/uL (130-400); RED BLOOD COUNT 6.53 10*6/uL (4.50-5.90); RED CELL DISTRI WIDTH 20.6 % (0-14.5)
[2022-05-22 15:53] LABS: INTERNATIONAL NORM RATIO 3.2 (2.0-3.5)
[2022-05-22 16:05] LABS: ALKALINE PHOSPHATASE 51 U/L (45-117); BUN 17 mg/dl (7-24); CHLORIDE 107 mmol/L (98-107); CREATININE 0.86 mg/dL (0.70-1.30); LIPASE 195 U/L (73-393); POTASSIUM 3.8 mmol/L (3.5-5.1); SGOT/AST 20 IU/L (3-35); SGPT/ALT 26 U/L (12-78); SODIUM 138 mmol/L (136-145)
[2022-05-22 16:28] LABS: MANUAL DIFF REFLEX YES
[2022-05-22 16:32] LABS: ATYPICAL LYMPHS 2 % (0-0); PLATELET SUFFICIENCY NORMAL (NORMAL); TOTAL CELLS COUNTED 100 #CELLS
[2022-05-22 16:33] LABS: POLYCHROMASIA SLIGHT
== END 2022-05-22 17:34 | disposition home or self-care (01) ==
LOC: ED 14:57
PROVIDERS: Emergency Medicine
DX: R25.1 Tremor, unspecified (principal); Z87.891 Personal history of nicotine dependence; Z90.89 Acquired absence of other organs; Z98.890 Other specified postprocedural states; Z79.899 Other long term (current) drug therapy; Z79.01 Long term (current) use of anticoagulants

== ENCOUNTER → 2022-08-01 | Outpatient (CLI) | payer MEDICARE ==
[~2022-08-01] MED LIST changes: +WARFARIN SOD5 MG PO
== END | disposition home or self-care (01) ==
LOC: CT 09:00
PROVIDERS: ATTEND Psychiatry & Neurology Neurology
DX: M47.813 Spondylosis without myelopathy or radiculopathy, cervicothoracic region (principal); M25.78 Osteophyte, vertebrae; M48.03 Spinal stenosis, cervicothoracic region; J98.4 Other disorders of lung; J43.8 Other emphysema; R25.2 Cramp and spasm; Z95.5 Presence of coronary angioplasty implant and graft

== ENCOUNTER → 2022-08-20 | Outpatient (CLI) | payer MEDICARE | END | disposition home or self-care (01) | LOC: CARD 00:13 | PROVIDERS: ATTEND Internal Medicine Cardiovascular Disease | DX: I35.0 Nonrheumatic aortic (valve) stenosis (principal); I51.7 Cardiomegaly; I21.4 Non-ST elevation (NSTEMI) myocardial infarction ==

== ENCOUNTER → 2022-10-22 | Outpatient (CLI) | payer MEDICARE ==
[~2022-10-22] MED LIST changes: +CARVEDILOL6.25 MG PO; +ENOXAPARIN100 MG/1 M SC; +LOSARTAN POTASS25 M1 PO; +LOVENOX100 MG/1 M SC; +TIZANIDINE2 MG PO
== END | disposition home or self-care (01) ==
LOC: LAB 13:42
PROVIDERS: ATTEND Internal Medicine Cardiovascular Disease
DX: I48.20 Chronic atrial fibrillation, unspecified (principal)

== ENCOUNTER → 2022-11-24 | Outpatient (CLI) | payer MEDICARE ==
[2022-11-24 10:23] LABS: HEMATOCRIT 46.6 % (42.0-52.0); MEAN CELL VOLUME 72.4 fl (80.0-94.0); MEAN CORPUSCULAR HGB 21.9 pg (27.0-31.0); MEAN CORPUSCULAR HGB CONC 30.3 g/dl (33.0-37.0); MEAN PLATELET VOLUME 11.6 fl (9.6-12.3); RED BLOOD COUNT 6.44 10*6/uL (4.50-5.90); RED CELL DISTRI WIDTH 17.8 % (0-14.5); WHITE BLOOD COUNT 4.4 10*3/uL (4.8-10.8)
[2022-11-24 10:32] LABS: INTERNATIONAL NORM RATIO 2.4 (2.0-3.5)
[2022-11-24 10:50] LABS: MANUAL DIFF REFLEX YES
[2022-11-24 10:51] LABS: PLATELET COUNT AUTOMATED 231 10*3/uL (130-400)
[2022-11-24 10:55] LABS: BASOPHILS 1 % (0-1); TOTAL CELLS COUNTED 100 #CELLS
[2022-11-24 10:56] LABS: MICROCYTOSIS SLIGHT; OVALOCYTES FEW; PLATELET SUFFICIENCY NORMAL (NORMAL); POLYCHROMASIA SLIGHT; ROULEAUX SLIGHT
== END | disposition home or self-care (01) ==
LOC: LAB 09:43
PROVIDERS: ATTEND Physician Assistant Medical
DX: Q23.9 Congenital malformation of aortic and mitral valves, unspecified (principal); Z95.2 Presence of prosthetic heart valve

== ENCOUNTER → 2022-12-14 | Outpatient (CLI) | payer MEDICARE ==
[2022-12-14 11:08] LABS: BUN 10 mg/dl (9-23); CHLORIDE 105 mmol/L (98-107); POTASSIUM 3.9 mmol/L (3.4-5.1)
== END | disposition home or self-care (01) ==
LOC: LAB 09:49
PROVIDERS: ATTEND Thoracic Surgery (Cardiothoracic Vascular Surgery)
DX: I82.90 Acute embolism and thrombosis of unspecified vein (principal)

== ENCOUNTER 2023-02-09 18:52 | Emergency (ER) | payer MEDICARE ==
[~2023-02-09] VITALS: Ht 177.8 cm; Wt 86.2 kg
[2023-02-09 19:42] LABS: BASO % 0.1 % (0.0-1.0); EOS % 0.3 % (1.0-4.0); HEMATOCRIT 46.8 % (42.0-52.0); LYMPH # 0.5 10*3/uL (1.3-4.4); LYMPH % 6.7 % (27.0-41.0); MEAN CELL VOLUME 72.3 fl (80.0-94.0); MEAN CORPUSCULAR HGB 21.5 pg (27.0-31.0); MEAN CORPUSCULAR HGB CONC 29.7 g/dl (33.0-37.0); MEAN PLATELET VOLUME 9.9 fl (9.6-12.3); MONO # 0.8 10*3/uL (0.1-1.0); MONO % 9.8 % (3.0-9.0); NEUT # 6.5 10*3/uL (2.3-7.9); PLATELET COUNT AUTOMATED 191 10*3/uL (130-400); RED BLOOD COUNT 6.47 10*6/uL (4.50-5.90); RED CELL DISTRI WIDTH 19.5 % (0-14.5); WHITE BLOOD COUNT 7.9 10*3/uL (4.8-10.8)
[2023-02-09 20:04] LABS: ALKALINE PHOSPHATASE 53 U/L (46-116); BUN 10 mg/dl (9-23); CHLORIDE 103 mmol/L (98-107); POTASSIUM 3.9 mmol/L (3.4-5.1); SGPT/ALT 11 U/L (10-49); TOTAL PROTEIN 7.1 gm/dL (6.0-8.0)
[2023-02-09 21:32] VITALS: BP 102/51
[2023-02-09] MEDS ORDERED: ONDANSETRON4 MG SL (22:17)
== END 2023-02-09 22:31 | disposition home or self-care (01) ==
LOC: ED 18:52
PROVIDERS: Internal Medicine
DX: B34.9 Viral infection, unspecified (principal); K80.20 Calculus of gallbladder without cholecystitis without obstruction; K80.80 Other cholelithiasis without obstruction; I10 Essential (primary) hypertension; Z86.73 Personal history of transient ischemic attack (TIA), and cerebral infarction without residual deficits; I25.2 Old myocardial infarction; I50.9 Heart failure, unspecified; E78.00 Pure hypercholesterolemia, unspecified; Z88.8 Allergy status to other drugs, medicaments and biological substances; Z98.890 Other specified postprocedural states; Z90.89 Acquired absence of other organs; Z87.891 Personal history of nicotine dependence; F12.90 Cannabis use, unspecified, uncomplicated

== ENCOUNTER 2023-02-27 11:47 | Emergency (ER) | payer MEDICARE ==
[~2023-02-27] VITALS: Ht 177.8 cm; Wt 86.2 kg
[~2023-02-27 11:47] MED LIST changes: +ONDANSETRON4 MG SL
[2023-02-27 11:53] VITALS: BP 150/95
[2023-02-27] MEDS ORDERED: CEPHALEXIN500 M1 PO (13:35)
== END 2023-02-27 13:20 | disposition home or self-care (01) ==
LOC: ED 11:47
DX: S61.215A Laceration without foreign body of left ring finger without damage to nail, initial encounter (principal); Z86.73 Personal history of transient ischemic attack (TIA), and cerebral infarction without residual deficits; I25.2 Old myocardial infarction; I50.9 Heart failure, unspecified; I11.0 Hypertensive heart disease with heart failure; E78.00 Pure hypercholesterolemia, unspecified; Z88.8 Allergy status to other drugs, medicaments and biological substances; Z98.890 Other specified postprocedural states; Z90.89 Acquired absence of other organs; Z87.891 Personal history of nicotine dependence; F12.90 Cannabis use, unspecified, uncomplicated; F10.10 Alcohol abuse, uncomplicated; W31.89XA Contact with other specified machinery, initial encounter; Y93.89 Activity, other specified; Y92.89 Other specified places as the place of occurrence of the external cause; Y99.8 Other external cause status

== ENCOUNTER → 2023-03-07 | Outpatient (CLI) | payer MEDICARE ==
[~2023-03-07] MED LIST changes: +CEPHALEXIN500 M1 PO
[2023-03-07 12:50] LABS: CPK 113 U/L (34-171)
== END | disposition home or self-care (01) ==
LOC: LAB 11:56 → WOUNDCARE 11:56
PROVIDERS: ATTEND Psychiatry & Neurology Neurology
DX: S61.314A Laceration without foreign body of right ring finger with damage to nail, initial encounter (principal); I10 Essential (primary) hypertension; I48.91 Unspecified atrial fibrillation; G89.11 Acute pain due to trauma; Z87.891 Personal history of nicotine dependence; Z95.4 Presence of other heart-valve replacement; Z95.0 Presence of cardiac pacemaker; Z95.1 Presence of aortocoronary bypass graft; X58.XXXA Exposure to other specified factors, initial encounter; Y93.89 Activity, other specified; Y92.89 Other specified places as the place of occurrence of the external cause; Y99.8 Other external cause status

== ENCOUNTER 2023-08-19 19:03 | Emergency (ER) | payer MEDICARE ==
[~2023-08-19] VITALS: Ht 177.8 cm; Wt 81.6 kg
[~2023-08-19 19:03] MED LIST changes: +DOXYCYCLINE MO100 MG PO; +DULOXETINE HCL30 MG PO; +HYDROXYZINE HCL25 MG PO; +Tegretol100 MG/5 M PO; +VITAMIN D350 MC2 PO
[2023-08-19 19:27] VITALS: BP 134/66
[2023-08-19] MEDS ORDERED: PREDNISONE20 M1 PO (20:13)
[2023-08-19] MEDS ORDERED: VIBRAMYCIN100 MG PO (20:13)
== END 2023-08-19 20:29 | disposition home or self-care (01) ==
LOC: ED 19:03
DX: J20.8 Acute bronchitis due to other specified organisms (principal); Z86.73 Personal history of transient ischemic attack (TIA), and cerebral infarction without residual deficits; I11.0 Hypertensive heart disease with heart failure; I50.9 Heart failure, unspecified; E78.00 Pure hypercholesterolemia, unspecified; F32.A Depression, unspecified; I25.10 Atherosclerotic heart disease of native coronary artery without angina pectoris; I48.91 Unspecified atrial fibrillation; F41.9 Anxiety disorder, unspecified; I25.2 Old myocardial infarction; Z88.8 Allergy status to other drugs, medicaments and biological substances; Z98.890 Other specified postprocedural states; Z90.89 Acquired absence of other organs; Z87.891 Personal history of nicotine dependence